=== PATIENT | male | born 1985 | race Two or more races ===

== ENCOUNTER 2017-01-05 20:05 | Emergency (ER) | payer SELFPAY ==
[2017-01-05 20:21] VITALS: BP 162/96; BMI 29.6
[2017-01-05] MEDS ORDERED: ASPIRIN PO ONE (22:00)
[2017-01-05] MEDS ORDERED: NS 1000 ML 1,000 ML IV ONE (22:01)
--- NOTE | 2017-01-05 22:04 | DR.GENAD ---
HPI - PCP Primary Care Physician: NFD - Complaint/Symptoms Chief Complaint Doctors Comments: Patient states he thinks he was bitten by something but he does not know what it was nor did he see anything. States he has been haviing xiphoid pain with pain in his feet and hands and legs wtih SOB. He denies cold, cough, fever or chills. States he has been working in the sun most of the day and has been drinking water. states he is not itching nor does his back hurt. States he does not have a local doctor. He smokes and drinks a little as related by his intreputer. Chief Complaint:: "He got bite by a black spider is what he thinks it was on his back. having trouble breathing and his feet hurt and are pulsing dizzy feels like hes going to pass out." Self Treatment fo Chief Complaint: Small red bite noted to left shoulder on back - Nurses notes reviewed Nurses Notes Review: Yes - Source History Provided: Patient - Mode of Arrival Mode of Arrival: Ambulatory - Timing Onset of Chief Complaint: 01/05/17 Came on: Gradually - Duration Duration: Constant How lon Duration: Hours - Location Location: left upper back area - Severity Severity: Mild - Modifying Factors Worsens:: nothing Improves:: nothing PMH - PMH Past Medical History: No Past Surgical History: No - Family History History of Family Medical Conditions: No - Social History Alcohol Use: Occasionally Do you use any recreational Drugs:: No Lives With: Family Lives Where: Home - infectious screening Have you traveled outside the country in the last 6 months?: No ROS - Review of Systems Constitutional: No Symptoms Reported, Weakness. negative: See HPI, Chills, Diaphoresis, Fever, Malaise, Irritable, Fatigue, Loss of Appetite, Other Eyes: No Symptoms Reported. negative: See HPI, Eye Pain, Blurred Vision, Tearing, Discharge, Photophobia, Diplopia, Other ENTM: No Symptoms Reported Respiratoy: No Symptoms Reported, Short of Breath Cardiovascular: No Symptoms Reported, Chest Pain. negative: See HPI, Edema, Palpitations, Syncope, Cyanosis, Skin Mottling, Other Gastrointestinal/Abdominal: No Symptoms Reported. negative: See HPI, Abdominal Pain, Constipation, Diarrhea, Nausea, Vomiting, Food Intolerance, Other Genitourinary: No Symptoms Reported Neurological: No Symptoms Reported, Weakness, Dizziness. negative: See HPI, Anxiety, Depressed, Emotional Problems, Headache, Numbness, Paresthesia, Pre- existing Deficit, Seizure, Tingling, Tremors, Problems Walking, Speech Problem, Other Musculoskeletal: No Symptoms Reported, Back Pain Integumentary: No Symptoms Reported. negative: See HPI (several papules on the backp; no erythema or swelling or discharge), Change in Color, Change in Hair/ Nails, Dryness, Lesions, Lumps, Rash, Itching, Wound, Bruises, Juandice, Other Hematologic/Lymphatic: No Symptoms Reported. negative: See HPI, Anemia, Blood Clots, Easy Bleeding, Easy Bruising, Swollen Glands, Lymphadenopathy, Other Endocrine: No Symptoms Reported Psychiatric: No Symptoms Reported. negative: See HPI, Anxiety, Depression, Hallucinations, Excessive crying, Suicidal, Other PE - Vital Signs Vitals: Temperature 98.5 F Pulse Rate 64 Respiratory Rate 20 Blood Pressure 162/96 O2 Sat by Pulse Oximetry 100 - General Limitations: No Limitations General Appearance: Alert, In No Apparent Distress - Head Head Exam: Normal Inspection, Atraumatic, Normocephalic - Eyes Eye exam: Normal Appearance, PERRL, EOMI. negative: Scleral Icterus, Conjunctival Injection, Nystagmus, Miosis, Mydrasis, Periorbital Swelling, Periorbital Tenderness, Other - ENT ENT Exam: Normal Exam, Normal Oropharynx, Normal External Ear Exam, Mucous Membranes Moist, TM's Normal Bilaterally External Ear Exam: Normal External Inspection TM/Canal Exam: Bilateral Normal Nose Exam: Normal Nose Exam Mouth Exam: Normal Inspection Throat Exam: Normal Inspection. negative: Tonsillar Erythema, Tonsillomegaly, Tonsillar Exudate, R Peritonsillar Mass, L Peritonsillar Mass, Muffled Voice, Other - Neck Neck Exam: Normal Inspection, Full ROM, Trachea Midline - Chest Chest Inspection: Normal Inspection, Symmetric Chest Wall Rise - Respiratory Respiratory Exam: Normal Lung Sounds Bilat Respiratory Exam: Bilateral Clear to Auscultation - Cardiovascular Cardiovascular Exam: Regular Rate, Normal Rhythm, Normal Heart Sounds. negative : Bradycardia, Tachycardia, Irregular Rhythm, Systolic Murmur, Diastolic Murmur , Rubs, Gallop, Clicks, JVD, +S1, +S2, +S3, +S4, Other - Abdominal Exam Abdominal Exam: Normal Inspection, Normal Bowel Sounds, Soft. negative: Distention, Tenderness, Guarding, Rebound, Rigidity, Dimnished Bowel Sounds, Hyperactive Bowel Sounds, Hypoactive Bowel Sounds, Organomegaly, Trauma, Incision, Ascites, Mass, Bruit, Pulsatile Mass, Hernia, Other Abdominal Tenderness: negative: RUQ, RLQ, LUQ, LLQ, Epigastrium, Suprapubic, Diffuse, Mild, Moderate, Severe, Other - Extremities Extremities Exam: Normal Inspection, Full ROM, Normal Capillary Refill. negative: Tenderness, Edema, Joint Swelling, Calf Tenderness, Other - Back Back Exam: Normal Inspection, Full ROM. negative: Tenderness, (R) CVA Tenderness, (L) CVA Tenderness, Muscle Spasm, Paraspinal Tenderness, Vertebral Tenderness, Rashes, (R) Sciatic Notch Tenderness, (L) Sciatic Notch Tendern, (R ) Straight Leg Raise, (L) Straight Leg Raise, Other - Neurologic Neurological Exam: Alert, Oriented X3, CN II-XII Intact, Normal Gait - Psychiatric Psychiatric Exam: Normal Affect, Normal Mood. negative: Depressed, Agitated, Anxious, Flat Affect, Manic, Homicidal Ideation, Suicidal Ideation, Other - Skin Skin Exam: Warm, Dry, Intact, Normal Color. negative: Rash, Cyanosis, Diaphoresis, Erythema, Pallor, Mottled, Other ROR - Labs Reviewed Laboratory Results Reviewed?: Yes (all labs and x-ray results reviewed and discussed with patient.) Result Diagrams: 01/05/17 22:20 01/05/17 22:20 Laboratory: WBC 12.0 X10^3/uL (3.6-10.0) H 01/05/17 22:20 RBC 5.26 X10^6/uL (4.7-6.0) 01/05/17 22:20 Hgb 16.2 g/dL (13.5-18.0) 01/05/17 22:20 Hct 46.4 % (42.0-54.0) 01/05/17 22:20 MCV 88.2 fL (80.0-100.0) 01/05/17 22:20 MCH 30.9 pg (27.0-34.0) 01/05/17 22:20 MCHC 35.0 g/dL (33.0-35.0) 01/05/17 22:20 RDW 12.7 % (11.6-16.5) 01/05/17 22:20 Plt Count 285 X10^3/uL (150.0-450.0) 01/05/17 22:20 MPV 9.1 fL (7.4-11.0) 01/05/17 22:20 Neut % 80.8 % (42.0-75.0) H 01/05/17 22:20 Lymph % 12.7 % (21.0-51.0) L 01/05/17 22:20 [place] % 5.0 % (0.0-13.0) 01/05/17 22:20 Eos % 0.8 % (0.9-2.9) L 01/05/17 22:20 Baso % 0.7 % (0.2-1.0) 01/05/17 22:20 Neut # 9.7 x10^3/uL (2.2-4.8) H 01/05/17 22:20 Lymph # 1.5 X10^3/uL (1.3-2.9) 01/05/17 22:20 [place] # 0.6 x10^3/uL (0.3-0.8) 01/05/17 22:20 Eos # 0.1 x10^3/uL (0.0-0.2) 01/05/17 22:20 Baso # 0.1 X10^3/uL (0.0-0.1) 01/05/17 22:20 Absolute Nucleated RBC 0.0 /100WBC 01/05/17 22:20 INR Target Range - 01/05/17 22:20 INR 1.04 (0.8-1.3) 01/05/17 22:20 PTT 27.4 SECONDS (22.9-36.5) 01/05/17 22:20 PTT Comment - 01/05/17 22:20 D-Dimer < 100 ng/mL (0-400) 01/05/17 22:20 Sodium 138 mmol/L (136-145) 01/05/17 22:20 Corrected Sodium 138 mmol/L (136-145) 01/05/17 22:20 Potassium 3.7 mmol/L (3.5-5.1) 01/05/17 22:20 Chloride 102 mmol/L (98-107) 01/05/17 22:20 Carbon Dioxide 24.9 mmol/L (21-32) 01/05/17 22:20 BUN 13 mg/dL (7-18) 01/05/17 22:20 Creatinine 0.97 mg/dL (0.70-1.30) 01/05/17 22:20 Est GFR (MDRD) Af Amer > 60 (>60) 01/05/17 22:20 Est GFR (MDRD) Non-Af > 60 (>60) 01/05/17 22:20 Glucose 115 mg/dL (65-99) H 01/05/17 22:20 Calcium 8.6 mg/dL (8.5-10.1) 01/05/17 22:20 Corrected Calcium TNP 01/05/17 22:20 Magnesium 1.9 mg/dL (1.7-2.9) 01/05/17 22:20 Total Bilirubin 1.00 mg/dL (0.2-1.0) 01/05/17 22:20 AST 25 Units/L (15-37) 01/05/17 22:20 ALT 34 Units/L (12-78) 01/05/17 22:20 Alkaline Phosphatase 105 Units/L (46-116) 01/05/17 22:20 Creatine Kinase 182 Units/L (39-308) 01/05/17 22:20 CK-MB (CK-2) 1.3 ng/mL (0-4.0) 01/05/17 22:20 CK/CKMB % Calc 0.7 % (<4) 01/05/17 22:20 Troponin I 0.02 ng/mL (0-1.5) 01/05/17 22:20 Total Protein 8.3 g/dL (6.4-8.2) H 01/05/17 22:20 Albumin 4.5 g/dL (3.4-5.0) 01/05/17 22:20 Globulin 3.8 g/dL (2.5-4.5) 01/05/17 22:20 Albumin/Globulin Ratio 1.2 Ratio (1.1-2.1) 01/05/17 22:20 - XRAY XRAY Interpreted by: Radiologist (CXR: no acute cardiopulmonary changes noted) - EKG Rate: 47 [place]: Normal Rhythm: SB Block: None ST: Nonsp - Diagnosis Discharge Problem: possible bite, Muscle cramps, Chest pain, Hyperglycemia - Discharge Plan Disposition: 01 HOME, SELF-CARE Condition: Stable Prescriptions: Cyclobenzaprine HCl [FLEXERIL 10 MG *] 10 mg PO TID #30 tab Ibuprofen [MOTRIN TAB 800 MG *] 800 mg PO Q8H PRN #40 tab PRN Reason: Pain/Inflammation - Follow ups/Referrals Follow ups/Referrals: NFD,None [Primary Care Provider] - 3 days Lex Liao [STAFF PHYSICIAN] - 3 days - Instructions Instructions: Insect Bite, [id number], Hyperglycemia, Muscle Cramps and Spasms, [id number]
[2017-01-05] MEDS ORDERED: NS 1000 ML 1,000 ML ONE (22:14)
[2017-01-05] MEDS ORDERED: ASPIRIN ONE (22:14)
--- NOTE | 2017-01-05 22:26 | RAD ---
EXAM: Chest X-ray INDICATION: Chest pain COMPARISION: No prior TECHNIQUE: AP, single view FINDINGS: The lungs are clear in the lung volumes are within normal limits. No pleural effusion or pneumothora x. The cardiac silhouette and mediastinum are normal. The regional skeleton is intact. IMPRESSION: Normal Chest X-Ray Reported By:
[2017-01-05 22:29] LABS: BASOPHILS # (AUTO) 0.1 X10^3/uL (0.0-0.1); BASOPHILS % (AUTO) 0.7 % (0.2-1.0); EOSINOPHILS # (AUTO) 0.1 x10^3/uL (0.0-0.2); EOSINOPHILS % (AUTO) 0.8 % (0.9-2.9); HEMATOCRIT 46.4 % (42.0-54.0); HEMOGLOBIN 16.2 g/dL (13.5-18.0); LYMPHOCYTES # (AUTO) 1.5 X10^3/uL (1.3-2.9); LYMPHOCYTES % (AUTO) 12.7 % (21.0-51.0); MEAN CORPUSCULAR HEMOGLOBIN 30.9 pg (27.0-34.0); MEAN CORPUSCULAR VOLUME 88.2 fL (80.0-100.0); MEAN PLATELET VOLUME 9.1 fL (7.4-11.0); MONOCYTES # (AUTO) 0.6 x10^3/uL (0.3-0.8); NEUTROPHILS # (AUTO) 9.7 x10^3/uL (2.2-4.8); NEUTROPHILS % (AUTO) 80.8 % (42.0-75.0); PLATELET COUNT 285 X10^3/uL (150.0-450.0); RED BLOOD COUNT 5.26 X10^6/uL (4.7-6.0); RED CELL DISTRIBUTION WIDTH 12.7 % (11.6-16.5)
[2017-01-05 22:47] LABS: BLOOD UREA NITROGEN 13 mg/dL (7-18); CALCIUM 8.6 mg/dL (8.5-10.1); CARBON DIOXIDE 24.9 mmol/L (21-32); CHLORIDE 102 mmol/L (98-107); COR NA(FOR HYPERGLY) 138 mmol/L (136-145); CREATININE 0.97 mg/dL (0.70-1.30); GLUCOSE 115 mg/dL (65-99); SODIUM 138 mmol/L (136-145); TROPONIN I 0.02 ng/mL (0-1.5); eGFR BLACK RACES > 60 (>60); eGFR NON BLACK RACES > 60 (>60)
[2017-01-05 22:51] LABS: ALANINE AMINOTRANSFERASE 34 Units/L (12-78); ALBUMIN 4.5 g/dL (3.4-5.0); ALKALINE PHOSPHATASE 105 Units/L (46-116); ASPARTATE AMINO TRANSFERASE 25 Units/L (15-37); CKMB % 0.7 % (<4); CREATINE KINASE 182 Units/L (39-308); CREATINE KINASE MB 1.3 ng/mL (0-4.0); MAGNESIUM 1.9 mg/dL (1.7-2.9); TOTAL PROTEIN 8.3 g/dL (6.4-8.2)
[2017-01-05 23:01] LABS: D DIMER < 100 ng/mL (0-400)
[2017-01-05] MEDS ORDERED: TORADOL 30 MG VIAL IVP STA (23:33)
[2017-01-05] MEDS ORDERED: FLEXERIL TAB 10 MG PO STA (23:37)
[2017-01-05] MEDS ORDERED: TORADOL 30 MG VIAL ONE (23:41)
[2017-01-05] MEDS ORDERED: FLEXERIL TAB 10 MG ONE (23:42)
[2017-01-05] MEDS ORDERED: ADACEL TDaP IM ONE (23:45)
[2017-01-06] MEDS ORDERED: ADACEL TDaP IM ONE (00:35)
== END 2017-01-06 00:43 | disposition home or self-care (01) ==
LOC: ER 20:31
DX: R25.2 Cramp and spasm (principal); R07.89 Other chest pain; R73.9 Hyperglycemia, unspecified
CPT/HCPCS: 36415; 71010; 80053; 82550; 82553; 83735; 84484; 85025; 85378; 85610; 85730; 90471; 93005; 93010; 96365; 96367; 96374; 99283; A4222; J1885